=== PATIENT | male | born 1955 | race Caucasian/White ===

== ENCOUNTER 2020-11-22 10:30 | Outpatient (RCR) | payer BC, SELFPAY ==
--- NOTE | 2020-10-25 10:50 | HP.PTEVAL_ITS ---
Patient's Visit Information CONSUELO DESOUZA is a 65 year old M referred to Physical Therapy by Kolby Marsh PA-C with a diagnosis of OA R knee. Date of Evaluation: 10/25/20 Physical Therapist: ARMAND Piña - Visit Plan Frequency: 2x /Week Duration: 4 Weeks Plan: Contacted Sheridan from [facility] for an OA brace and she will contact the pt and hopefully get him fitted next Wednesday. 2X/ week for 4-6 weeks for R knee and hip strength, R knee AROM (tez extension), gait training, functional activities, stretching with HEP and modalities if needed. HEP: SLR, Bridges, QS - Subjective Pt has been having issues with his R knee. He was told her has no cartilage and arthritis in his R knee. He was given a cortizone shot that helped for about 3 days. He stands on concrete all night long. They wanted to try PT. They are weighing options for surgery right now (R TKR). He also talked about replacing the cushion in his knee. It bothers him more when he walks a long distance. He golfs once a week but rides in a cart. Going up and down stairs bothers him. He has no trust or strength in his R knee. This has been going on and off for a few years. He is on meloxicam and Tylenol when it is really bad. Steps; up with the L and one step at a time. He points to medial knee for the pain. Uneven surfaces bother him also. He has an exercise bike at home which he gets on it at home. It is hard to no over do it. He has iced before but no now. - Pain R knee pain Pain Intensity (Out of 10): 2 Pain Intensity Range: 8 Comment: with walking distances - Objective Pt is not able to walk on heels (increase R knee pain) and pt is not able to walk on R toes due to increase weakness. Gait: walks with decreased stance time on the R LE and decreased heel to toe gait pattern on the R LE. WBOS, decreased hip ext. L KNEE AROM -2 122. R KNEE AROM -12 to 110. LE MMT: B hip flex 4/5, R knee ext 3+/5 and L 4/5, B knee flex 4-/5, R hip ext 3-/5, L hip ext 4- /5, R hip abd 4-/5, and L hip abd 4/5, Pt is able to do 3/4 normal ROM bridge. Palpation: tender along the R knee medial joint line and patellar tendon on the R. Observation: pt likes to keep his R knee bent in standing which increases the pressure on the patellar tendon. - Goals Goal 1:: I HEP Goal Time Frame: 4-6 Weeks Goal 2:: Increase R knee AROM to -8 degrees extension to 120 degrees R knee flexion Goal Time Frame: 4-6 Weeks Goal 3:: Increase R knee and hip strength by 1/2 muscle grade (at time of the eval: LE MMT: B hip flex 4/5, R knee ext 3+/5 and L 4/5, B knee flex 4-/5, R hip ext 3-/5, L hip ext 4-/5, R hip abd 4-/5, and L hip abd 4/5, Pt is able to do 3/4 normal ROM bridge). Goal Time Frame: 4-6 Weeks Goal 4:: Be able to walk longer distances without increase pain per subj by 25% Goal Time Frame: 4-6 Weeks Goal 5:: Be able to go up and down the stairs with B hand rails recip with 1/10 or less pain or difficulty Goal Time Frame: 4-6 Weeks - Rehabilitation Potential Rehabilitation Potential: Good - Anticipated Interventions Patient/Client Instruction: Educate patient on: Condition, Plan of Care For the Purpose of:: To decrease pain, To increase ROM, To improve nutrient delivery to tissue, To improve muscle performance and motor function, To improve ability to perform ADL's, To increase tolerance to activity/condition/position, To improve performance and independence with ADL's, To improve ability of physical actions for home/community/work/leisure, To improve gait and locomotor functions, To improve health of tissue, To decrease soft tissue restriction, To increase flexibility/ROM, To improve safety with gait Therapeutic Exercise to Include: Strength training, Postural training, Flexibilty training, Gait and locomotor training, In an aquatic setting, Passive ROM, Active ROM, Dynamic Lumbar Stabilization For the Purpose of:: To decrease pain, To increase ROM, To improve nutrient delivery to tissue, To improve muscle performance and motor function, To improve ability to perform ADL's, To increase tolerance to activity/condition/position, To improve performance and independence with ADL's, To decrease level of supervision to perform tasks, To improve ability of physical actions for home/community/work/leisure, To improve gait and locomotor functions, To improve health of tissue, To decrease soft tissue restriction, To increase flexibility/ROM, To improve safety with gait Functional Training to Include: Gait training For the Purpose of:: To improve gait and locomotor functions, To improve safety with gait Manual Therapy Techniques to Include: Mobilization, Passive ROM For the Purpose of:: To increase ROM IF ES: Yes Cryotherapy (ice pack, ice massage): Yes Thermo therapy (hot pack): Yes Ultrasound (thermal/non thermal): Yes For the Purpose of:: To decrease pain, To decrease swelling/inflammation, To improve nutrient delivery to tissue Thank you for the opportunity to evaluate your patient. For Medicare and Medicare HMO plans, please review the plan of care and approve it. It will need to be FAXED BACK to us at [phone] for Medicare purposes. For Medicare only, by signing this I certify the plan of care. Please let me know if there are questions or concerns regarding this plan of care. Physician Signature: Date:
--- NOTE | 2020-11-22 11:23 | HP.PTREVAL ---
Kolby Marsh PA-C, It has been my pleasure to treat CONSUELO DESOUZA over the last 9 visits for OA R knee. Please see the progress note below for an update on the physical therapy plan of care! Subjective: Pt returns to Dr on Wednesday. Pt reports 50% improvement. Pt insurance won't cover gel shots. Cortizone only helped 2 days. Pt reports that he hurt his other ankle trippling over a cord. Knee only bothers him when he is up and on it, up and down stairs, or standing long periods of time. Objective/Function: LE MMT: B hip flex 4/5, R knee ext 4-/5 and L 4/5, B knee flex 4-/5, R hip ext 3+/5, L hip ext 4/5, R hip abd 4-/5, and L hip abd 4/5, Pt is able to do 3/4 normal ROM bridge). R knee AROM: Remains the same. Stairs up and down recip with 1 hand rail but relying a lot on the hand rails descending and hard to drive through R leg when ascending Plan Plan: Hold chart until after Dr shara on Wednesday Balance/Gait/Functional tests - Balance/Special Test Scores Lower Extremity Functional Score: 37 Goals Goal 1:: I HEP Goal Time Frame: 4-6 Weeks Goal Progress: Goal Met Goal 2:: Increase R knee AROM to -8 degrees extension to 120 degrees R knee flexion Goal Time Frame: 4-6 Weeks Goal Progress: Not Progressing Goal 3:: Increase R knee and hip strength by 1/2 muscle grade (at time of the eval: LE MMT: B hip flex 4/5, R knee ext 3+/5 and L 4/5, B knee flex 4-/5, R hip ext 3-/5, L hip ext 4-/5, R hip abd 4-/5, and L hip abd 4/5, Pt is able to do 3/4 normal ROM bridge). Goal Time Frame: 4-6 Weeks Goal 4:: Be able to walk longer distances without increase pain per subj by 25% Goal Time Frame: 4-6 Weeks Goal Progress: Not Progressing Goal 5:: Be able to go up and down the stairs with B hand rails recip with 1/10 or less pain or difficulty Goal Time Frame: 4-6 Weeks Goal Progress: Progressing Anticipated Interventions Patient/Client Instruction: Educate patient on: Condition, Plan of Care For the Purpose of:: To decrease pain, To increase ROM, To improve nutrient delivery to tissue, To improve muscle performance and motor function, To improve ability to perform ADL's, To increase tolerance to activity/condition/position, To improve performance and independence with ADL's, To improve ability of physical actions for home/community/work/leisure, To improve gait and locomotor functions, To improve health of tissue, To decrease soft tissue restriction, To increase flexibility/ROM, To improve safety with gait Therapeutic Exercise to Include: Strength training, Postural training, Flexibilty training, Gait and locomotor training, In an aquatic setting, Passive ROM, Active ROM, Dynamic Lumbar Stabilization For the Purpose of:: To decrease pain, To increase ROM, To improve nutrient delivery to tissue, To improve muscle performance and motor function, To improve ability to perform ADL's, To increase tolerance to activity/condition/position, To improve performance and independence with ADL's, To decrease level of supervision to perform tasks, To improve ability of physical actions for home/community/work/leisure, To improve gait and locomotor functions, To improve health of tissue, To decrease soft tissue restriction, To increase flexibility/ROM, To improve safety with gait Functional Training to Include: Gait training For the Purpose of:: To improve gait and locomotor functions, To improve safety with gait Manual Therapy Techniques to Include: Mobilization, Passive ROM For the Purpose of:: To increase ROM IF ES: Yes Cryotherapy (ice pack, ice massage): Yes Thermo therapy (hot pack): Yes Ultrasound (thermal/non thermal): Yes For the Purpose of:: To decrease pain, To decrease swelling/inflammation, To improve nutrient delivery to tissue Please do not hesitate to contact me at [phone] by phone or if you have questions or concerns regarding this new plan of care! Sincerely, Hollie Giles, MPT
--- NOTE | 2021-02-14 11:22 | HP.PTDCSUM ---
It has been my pleasure to treat CONSUELO DESOUZA referred by Kolby Marsh PA-C, with the diagnosis of OA R knee for a total of 9 visit(s). Discharge Date: 02/14/21 Please see the following information for a summary of their discharge status. Subjective: Pt returns to Dr on Wednesday. Pt reports 50% improvement. Pt insurance won't cover gel shots. Cortizone only helped 2 days. Pt reports that he hurt his other ankle trippling over a cord. Knee only bothers him when he is up and on it, up and down stairs, or standing long periods of time. R knee pain Pain Intensity (Out of 10): 5 % Improvement: 50 Objective/Function: LE MMT: B hip flex 4/5, R knee ext 4-/5 and L 4/5, B knee flex 4-/5, R hip ext 3+/5, L hip ext 4/5, R hip abd 4-/5, and L hip abd 4/5, Pt is able to do 3/4 normal ROM bridge). R knee AROM: Remains the same. Stairs up and down recip with 1 hand rail but relying a lot on the hand rails descending and hard to drive through R leg when ascending Goal 1:: I HEP Goal Progress: Goal Met Goal 2:: Increase R knee AROM to -8 degrees extension to 120 degrees R knee flexion Goal Progress: Not Progressing Goal 3:: Increase R knee and hip strength by 1/2 muscle grade (at time of the eval: LE MMT: B hip flex 4/5, R knee ext 3+/5 and L 4/5, B knee flex 4-/5, R hip ext 3-/5, L hip ext 4-/5, R hip abd 4-/5, and L hip abd 4/5, Pt is able to do 3/4 normal ROM bridge). Goal 4:: Be able to walk longer distances without increase pain per subj by 25% Goal Progress: Not Progressing Goal 5:: Be able to go up and down the stairs with B hand rails recip with 1/10 or less pain or difficulty Goal Progress: Progressing Plan: Hold chart until after appt on Wednesday and then DC Discharge Comments: DC PT back to physician If there are questions or concerns regarding this patient's physical therapy, please feel free to call me at [phone]. Thank you for the referral of this patient. Sincerely, Hollie Giles, ARMAND Balance/Gait/Functional tests - Balance/Special Test Scores Lower Extremity Functional Score: 37
== END 2020-11-22 19:00 | disposition home or self-care (01) ==
LOC: PT 10:30
PROVIDERS: Referring Provider Physician Assistant; Visit Provider Physician Assistant
DX: M17.11 Unilateral primary osteoarthritis, right knee (principal)
CPT/HCPCS: 97110; 97161; 97530

== ENCOUNTER → 2021-08-12 | Outpatient (CLI) | payer BC, SELFPAY ==
--- NOTE | 2021-08-12 08:32 | CT_ITS ---
STUDY: CT SCAN LOWER EXTREMITY RIGHT. [facility] protocol. REASON FOR EXAM: Male, 65 years old. OSTEOARTHRITIS RADIATION DOSAGE (If Supplied By Facility): CTDIvol = ( 18.76 ) mGy, DLP = ( 1282.07 ) mGycm. Individualized dose optimization techniques were used for this CT.? TECHNIQUE: Multiple axial tomographic images of the right hip joint, right knee joint and right ankle joint were obtained. Coronal and sagittal reconstruction was obtained as well. COMPARISON: None. FINDINGS: Imaging of the right hip joint was obtained. No significant joint space narrowing is seen. No soft tissue abnormalities present. Imaging of the right knee joint was obtained. Marked degree of joint space narrowing of the medial compartment knee joint with degenerative spur formation of the medial femoral condyle. There is a 5.1 mm well corticated bony density within the joint space suggestive of a joint mouse. Mild degree of patellofemoral osteoarthritis with HR spur formation along the posterior inferior aspect of the patella and the anterior portion of the distal femur. Small joint effusion. Imaging of the ankle joint was obtained. There is evidence of a talar neck beak. There is evidence of either nonunion of the posterior aspect of the talus versus an old avulsion fracture. CT/Extremity Lower without Contra IMPRESSION: Marked degree of the joint space narrowing involving the medial compartment of the knee joint with degenerative spur formation and small joint effusion. Electronically Signed: Ethan Emerson MD at 15:24 EDT ,
== END | disposition home or self-care (01) ==
LOC: CT 08:23
PROVIDERS: Referring Provider Orthopaedic Surgery; Visit Provider Orthopaedic Surgery
DX: M17.11 Unilateral primary osteoarthritis, right knee (principal)
CPT/HCPCS: 73700

== ENCOUNTER 2021-11-03 05:27 | Day surgery (SDC) | payer BC, SELFPAY ==
--- NOTE | 2021-08-12 08:35 | EKG12_ITS ---
Test Reason : Blood Pressure : / mmHG Vent. Rate : 068 BPM Atrial Rate : 068 BPM P-R Int : 154 ms QRS Dur : 084 ms QT Int : 394 ms P-R-T Axes : 019 -08 058 degrees QTc Int : 418 ms Normal sinus rhythm Inferior infarct , age undetermined , cannot be excluded Poor R wave progression Abnormal ECG Confirmed by FLO GAINES, CHANDRA ([id number]), news assignment editor CALVIN MORRIS ([id number]) on 08/12/2021 1:22:29 PM Referred By: Modesto Melgar Confirmed By:CHANDRA ROSSI MD
[2021-08-12 09:41] LABS: Absolute Lymphocyte Count 1.91 X10^3/uL (0.83-4.51); Absolute Neutrophil Count 3.9 X10^3/uL (2.0-7.7); Basophil# 0.08 X10^3/uL; Basophil% 1.1 % (0-1); Eosinophil# 0.44 X10^3/uL; Eosinophils% 6.1 % (0-5); Hematocrit 42.1 % (40-54); Hemoglobin 14.2 g/dL (13.0-16.5); Lymphocyte # 1.91 X10^3/ul (0.83-4.51); Lymphocyte % 26.3 % (19-41); Mean Corp Hgb Conc 33.7 g/dL (32-36); Mean Corpuscular Volume 86.1 fL (80-94); Mean Platelet Vol. 9.2 fl (6.2-12.0); Monocyte# 0.86 X10^3/uL; Monocyte% 11.9 % (0-10); NRBC Flagged by Analyzer 0 % (0-5); Neutrophil # 3.91 X10^3/uL (2.7-7.7); Neutrophil % 53.9 % (47-70); Platelet Count 264 K/mm3 (150-450); RBC Distribution Width CV 13.1 % (11.6-14.6); RBC Distribution Width SD 40.9 fl (35.1-43.9); Red Blood Count 4.89 M/mm3 (4.6-6.2); White Blood Count 7.3 K/mm3 (4.4-11.0)
[2021-08-12 10:08] LABS: Anion Gap 4 (5-15); BUN 19 mg/dL (7-18); BUN/Creat Ratio 21.3 RATIO (10-20); Calcium,Total 9.1 mg/dL (8.5-10.1); Chloride 109 mmol/L (98-107); Creatinine, Serum 0.89 mg/dL (0.70-1.30); EST Glomerular Filtration Rate 92 mL/min (>60); Est Glom Filt Rate - Afr Amer 111 mL/min (>60); Glucose 147 mg/dL (74-106); Potassium 3.9 mmol/L (3.5-5.1); Sodium Level 139 mmol/L (136-145)
[2021-08-12 10:28] LABS: Magnesium 2.1 mg/dL (1.6-2.6)
[2021-08-12 10:58] LABS: Hemoglobin A1c 6.6 % (3.8-5.6)
[2021-10-21 12:01] LABS: Absolute Lymphocyte Count 2.75 X10^3/uL (0.83-4.51); Absolute Neutrophil Count 4.7 X10^3/uL (2.0-7.7); Basophil# 0.11 X10^3/uL; Basophil% 1.2 % (0-1); Eosinophil# 0.57 X10^3/uL; Eosinophils% 6.1 % (0-5); Hemoglobin 14.7 g/dL (13.0-16.5); Lymphocyte # 2.75 X10^3/ul (0.83-4.51); Lymphocyte % 29.7 % (19-41); Mean Corp Hgb Conc 33.4 g/dL (32-36); Mean Corpuscular Hgb 29.3 pg (27.0-32.0); Mean Corpuscular Volume 87.6 fL (80-94); Mean Platelet Vol. 9.6 fl (6.2-12.0); Monocyte# 1.03 X10^3/uL; Monocyte% 11.1 % (0-10); NRBC Flagged by Analyzer 0 % (0-5); Neutrophil # 4.72 X10^3/uL (2.7-7.7); Neutrophil % 50.9 % (47-70); Platelet Count 282 K/mm3 (150-450); RBC Distribution Width SD 41.7 fl (35.1-43.9); Red Blood Count 5.02 M/mm3 (4.6-6.2); White Blood Count 9.3 K/mm3 (4.4-11.0)
[2021-10-21 12:28] LABS: Anion Gap 4 (5-15); BUN 18 mg/dL (7-18); BUN/Creat Ratio 20.5 RATIO (10-20); Calcium,Total 9.4 mg/dL (8.5-10.1); Chloride 109 mmol/L (98-107); Creatinine, Serum 0.88 mg/dL (0.70-1.30); EST Glomerular Filtration Rate 93 mL/min (>60); Est Glom Filt Rate - Afr Amer 113 mL/min (>60); Glucose 147 mg/dL (74-106); Potassium 4.2 mmol/L (3.5-5.1); Sodium Level 140 mmol/L (136-145)
[2021-10-21 12:29] LABS: Magnesium 2.1 mg/dL (1.6-2.6)
[2021-10-21 12:44] LABS: Hemoglobin A1c 6.8 % (3.8-5.6)
[2021-11-03] VITALS (10 sets, daily range): BP systolic 105–142; BP diastolic 49–85; PULSE 58–70; RESP 16–18; TEMP 36.2–36.8; O2SAT 91–99; BMI 45.9
[2021-11-03] MEDS: Lactated Ringers 1,000 ML 15 ML IV (06:05)
[2021-11-03] MEDS: Acetaminophen 500 MG Tablet 1000 MG PO ×2 (06:16→11:52)
[2021-11-03] MEDS: Gabapentin 600 MG Tablet PO (06:17)
[2021-11-03] MEDS: Insulin Lispro 100 UNIT/ML INSULN.PEN SC ×2 (06:46→10:51)
[2021-11-03 07:00] LABS: Bedside Glucose 275 mg/dL (74-106)
--- NOTE | 2021-11-03 07:30 | KNEE_PTH ---
PATIENT: CONSUELO DESOUZA LOC: [facility] [place] U#:[id number] AGE/SX: 66/M ROOM: RE11/03/[address]: Dr. Modesto Melgar DO : 1955 BED: DIS: 11/03/2021 SPEC #: [id number] RECD: 11/03/21 10:26 STATUS: MICHELLE REZenon #: [id number] MAEGAN: 11/03/21 07:[address]: Modesto Melgar DEPT: SURGICAL PATHOLOGY RECD BY: Betty Tubbs ENTERED: 11/03/21 10:49 SP TYPE: TOTAL KNEE OTHR DR: Dr. Raul Castillo MD No Primary Care Phys Tissues: Knee, NOS Procedures: Decalcification bone/plaque Surgery Specimen Level IV HEADER OPERATION: ERAS, total knee replacement robotic arm assist PRE-OP DIAGNOSIS: Osteoarthritis right knee TISSUE SUBMITTED: Bone and tissue right knee MICROSCOPIC DIAGNOSIS Bone and tissue, right knee, total knee replacement/resection: Pieces of bone with degenerative osteoarthritic changes. TJ:geno 11/06/2021 MICROSCOPIC DESCRIPTION Slides are reviewed. GROSS DESCRIPTION Received is one container designated bone and tissue right knee. The specimen consists of multiple fragments of chahal-yellow bone measuring in aggregate 10 x 9 x 3 cm. No soft tissue is identified. A number of bony fragments contain articular surfaces consistent with tibial plateau and femoral condyle and displaying prominent osteophyte formation, eburnation and bone erosion. Drapery Cutter Machine section is submitted in one cassette after decalcification. / TJ:geno 11/03/2021 TC:5 CPT: 57294, 54980
[2021-11-03] MEDS: Cefazolin 2 GM in 0.9% Normal Saline 100 ML IV (07:51)
[2021-11-03] MEDS: TXA 1000mg in NS100 100ml (IVPB at Incision) 660 MG IV (08:06)
[2021-11-03] MEDS: TXA 1000mg in NS100 100ml (IVPB at Closure) 660 MG IV (09:26)
--- NOTE | 2021-11-03 09:44 | PCM.OPRPT ---
Report of Operation Date of Procedure: 11/03/21 Pre-Operative Diagnosis: OA right knee Post-Operative Diagnosis: same Surgery/Procedure Performed:: Right TKR Description of Surgical Findings:: Report of Operation Date of Procedure: 11/03/2021 Preoperative Diagnosis: [ right ] knee primary osteoarthritis Postoperative Diagnosis: [right ] knee primary osteoarthritis Operation: Robotic Assisted Knee Total Arthroplasty, [right ] knee Surgeon: Dr Modesto Melgar DO Coke Loader: Kolby Marsh PA-C Anesthesia: general Anesthesiologist: Salas Zaidi M.D. Findings: Stable knee with good patella tracking Specimen(s): Bony cuts Complications: No intraoperative complications Estimated Blood Loss: 30 cc IV Fluids: 1000 cc crystalline Implants Used: 1. Gabriel Triathlon CR press-fit size 5 femur 2. Gabriel [employer]athlon size 4 tibia 3. 35 mm patella 4. 11 mm CS polyethylene Brief History Operative Indications: [ (66 y/o male) ] with history of [ right ] knee osteoarthrosis with radiographic findings with loss of joint space, osteophyte formation and subchondral sclerosis. Failed conservative measures as mentioned in the H&P. Discussion of total knee arthroplasty as well as risk and benefits were discussed with the patient including but not limited to blood loss, DVTs, PEs, neurovascular damage, general risk of anesthesia including loss of life, and stiffness or instability were also discussed with the patient. Patient demonstrated understanding and was able to sign informed consent. Procedure: On the date of procedure, patient's [right ] lower extremity was marked in the preoperative area. The patient was then taken back to the operating room where that patient was placed on the table in the supine position. All bony prominences were identified and well-padded. Anesthesia assumed control of the C-spine and airway throughout the remainder of the procedure. A tourniquet was placed on the [right ] upper thigh and the leg was prepped in a sterile fashion. The surgeon then scrubbed at this time. Upon reentering the room, the [right ] lower extremity was draped in a standard orthopedic fashion. A timeout was then called and everyone agreed upon the side, the site, the procedure to be performed, patient's identity and antibiotics given. Esmarch bandage was used to exsanguinate the extremity and the tourniquet was placed up to 250 mmHg with the knee in flexion. A midline skin incision was made and a sharp dissection was taken down through skin, subcutaneous tissue and fat. The standard medial parapatellar incision was made and the patella was subluxed laterally. An appropriate deep MCL release was done and the fat pad was resected. Our attention was then directed to the patella. The patella was everted and a flat resection was made. The knee was then flexed up and 2 femoral pins were placed inside the incision and 2 tibial pins were placed outside the incision in the medial tibia bicortically. Once this was completed, the 2 checkpoints in the femur and tibia were placed. Knee was then flexed up and the bony landmarks were registered. Once the was completed, the knee taken through range of motion and manually stressed allowing us to plan for an appropriate tibial cut. The robotic arm was brought into the field sterilely and checkpoint and saw were registered. Based on the patient's deformity, the tibial cut was made in [2 degrees varus ]. At this time, the tensioner was then placed in the joint and ligament tension was checked at 90 degrees and full extension. Based on the patient's ligamentous tension, appropriate adjustments were made to the operative plan and ligament releases were done. Once we were happy with our operative plan with balanced flexion and extension gaps, our attention was directed to the femur. The robot was brought into the field sterilely and registered. Posterior condylar cuts, anterior chamfer cuts and anterior cuts were appropriately made for a [size 5 ] femur. When these were completed, the saws were switched out in the distal femoral and posterior chamfer cuts were made. Protecting the soft tissue throughout this time. A [size 4 ] base plate was selected. The knee was flexed to 90 degrees and soft tissues and posterior osteophytes were removed from the joint. 40 cc of the periarticular injection was injected into the posterior medial corner of the joint. The appropriate trials were then placed on the femur and tibia. A trial polyethylene was trialed to ensure proper balancing and stability of the knee. The appropriate tibial internal rotation was then marked with a bovie. Our attention was then directed to the patella. The lug holes were drilled and the patella trial was placed. Patellar tracking was checked and deemed appropriate. Once we were happy, lug holes were drilled for the femur and trial components were removed. The tibia was subluxed and pinned into place and the keel was punched and drilled appropriately. Final components were verified and opened. The wound was copiously irrigated with normal saline. The components were impacted into place with the tibia, femur and finally the patella. The trial poly component was placed and the knee was placed in full extension. The tracking, alignment and balance were verified and a [ 11 mm CS ] polyethylene component was placed. Once the final components were placed an Irrisept lavage was performed and the wound was copiously irrigated with normal saline solution and the periarticular injection was given. the wound was closed in a layer-lugo fashion using #1 vicryl interrupted sutures for the arthrotomy, 2-0 interrupted vicryl suture for the subcuticular layer and suman for final skin closure. A sterile compressive dressing was then placed. The patient was then awakened from anesthesia, transferred to the [facility] and transferred to the PACU for recovery. My physician assistant corporation counsel was a vital part of this case. He was important in appropriate retraction during the case, and protection of soft tissues during bony cuts. His intimate knowledge of the case and my steps aided in safe and expedient completion of the procedure as well as appropriate position of the leg during the case. He was also vital in assisting with closure under my direct supervision. Due to the complexity of this case, robotic arm was used to assist in the surgery to improve accuracy and clinical outcomes. Post-op Plan: DVT ppx; ASA 81 mg BID, thigh high compression stockings Follow up: in office in 2 weeks for wound check PT: to start POD #0 at hospital, outpatient PT should be arranged. Preoperative antibiotic: Ancef 3 grams IV Modesto Melgar DO Surgeon: Modesto Melgar metal milling machine operator: Kolby Marsh Type of Anesthesia: General Anesthesiologist: Salas Zaidi Specimen's removed: bone Estimated Blood Loss (mL): 30 cc Fluids Replaced: 1000 cc crystalline Admit VTE Documentation VTE Present on Admission: No VTE Mechan Device Prophylaxis: SCD's and Thigh High RITCHIE Hose VTE Pharm Prophylaxis ordered?: Yes
[2021-11-03] MEDS: Lactated Ringers 1,000 ML 999 ML IV (10:14)
[2021-11-03 10:35] LABS: Bedside Glucose 182 mg/dL (74-106)
--- NOTE | 2021-11-03 10:55 | RAD_ITS ---
STUDY: X-RAY - RIGHT KNEE REASON FOR EXAM: Postoperative evaluation of right total knee arthroplasty. TECHNIQUE: 2 view(s) of the knee. COMPARISON: CT report 08/12/2021. FINDINGS: There is a right total knee arthroplasty without evidence of complication. There is postoperative gas in the soft tissues and overlying skin suman. RAD/Knee 1 or 2 Views IMPRESSION: Uncomplicated right total knee arthroplasty. Electronically Signed: Bebo Griffiths MD at 12:10 EDT ,
[2021-11-03] MEDS: Lactated Ringers 1,000 ML 125 ML IV (11:17)
[2021-11-03] MEDS: Ondansetron 4 MG/2 ML Vial IV (12:37)
== END 2021-11-03 14:53 | disposition home or self-care (01) ==
LOC: SDC 05:27 → AC 05:28
PROVIDERS: Anesthesiology; Referring Provider Orthopaedic Surgery; Visit Provider Orthopaedic Surgery
PROC: 0SRC0JZ Replacement of Right Knee Joint with Synthetic Substitute, Open Approach (ICD-10-PCS; CPT 27447; principal; 2021-11-03 07:00)
DX: M17.11 Unilateral primary osteoarthritis, right knee (principal); I10 Essential (primary) hypertension; E78.00 Pure hypercholesterolemia, unspecified; J45.909 Unspecified asthma, uncomplicated; Z86.16 Personal history of COVID-19; Z87.442 Personal history of urinary calculi; Z87.891 Personal history of nicotine dependence; Z71.3 Dietary counseling and surveillance
CPT/HCPCS: 27447; 64450; 36415; 73560; 80048; 82962; 83036; 83735; 85025; 87081; 88305; 88311; 93005; 97162; C1776; J7120; J2405; J3475